=== PATIENT | male | born 1980 | race Caucasian/White ===

== ENCOUNTER 2021-04-10 13:59 | Emergency (ER) | payer SELFPAY ==
[2021-04-10 15:28] VITALS: BP 138/84; PULSE 64; RESP 18; TEMP 36.9; O2SAT 100; BMI 36.0
[2021-04-10 15:42] VITALS: BP 138/84; PULSE 64; RESP 18; TEMP 36.9
--- NOTE | 2021-04-10 16:22 | HMH.EDUTC ---
[facility] – [place] Disposition Clinical Impression: Exposure to COVID-19 virus Disposition: Home, Self-Care Condition on Discharge: Good Instructions: DI for COVID-19 (Suspected or Confirmed ), Preventing the Spread of Coronavirus Discharge Instructions Additional Instructions: Drink plenty of fluids. Take tylenol for pain or fever. Return if you begin to have difficulty breathing. Follow up with your regular doctor. GO TO THE ER FOR ANY WORSENING SYMPTOMS Quarantine until you know the results of your covid-19 test. If it is positive, the health department should call you and give you further instructions about your length of Quarantine and other things. Notify your school or workplace of your results and follow their instructions regarding return to work/school. Referrals: Rikki Peguero [Primary Care Provider] - Forms: Work/School Release Time of Disposition: 16:24 Medical Decision Making - Medical Records Medical records reviewed: No: I reviewed the patient's medical records. - Bennie Inquiry Pt receiving controlled substance: No Vital Signs: 04/10/21 15:28 04/10/21 15:42 Temperature 98.5 F 98.5 F Temperature Source Oral Pulse Rate 64 Pulse Rate [Left] 64 Respiratory Rate 18 18 Blood Pressure 138/84 Blood Pressure [Right Arm] 138/84 Blood Pressure Mean [Right Arm] 102 02 Sat by Pulse Oximetry 100 [facility] – [place] HPI - General Stated complaint: Covid test , exposure Time Seen by Provider: 04/10/21 16:23 Mode of Arrival: Ambulatory Source of Information: Patient Limitations: No Limitations Description of Symptoms (Recalled from Triage Doc. by RN): pt is asymptomatic. wants covid swab. HEENT Symptoms (Recalled from RN notes): No Resp Symptoms (Recalled from RN notes): No Skin Symptoms (Recalled from RN notes): No MS Symptoms (Recalled from RN notes): No Functional Status (Recalled from RN notes): na - History of Present Illness Provider Complaint: He was exposed to covid-19 around 3 days ago. - Worker's Comp Is this a Worker's Comp case?: No [facility] History - Hepatitis A Screen Drug use history?: No High risk sexual behaviors?: No History of sexually transmitted infection?: No Currently employed?: No Childcare worker?: No Do you have indoor plumbing?: Yes Do you have electricity?: Yes Attestation statement:: This patient has been screened for Hepatitis A risk factors. I have reviewed the patient's past medical history: Yes ROS Obtained: Yes All systems reviewed & no additional complaints - Constitutional Constitutional: Reports system reviewed and no additional complaints, except as docu - Eyes Eyes: Reports system reviewed and no additional complaints, except as docu - ENT Ears, Nose, Mouth, and Throat: Reports system reviewed and no additional complaints, except as docu - Cardiovascular Cardiovascular: Reports system reviewed and no additional complaints, except as docu - Respiratory Respiratory: Reports system reviewed and no additional complaints, except as docu Physical Exam - General General appearance: alert, in no apparent distress - Head Head exam: atraumatic, normocephalic, normal inspection - Eye Eye exam: Present: normal appearance, PERRL, EOMI - ENT ENT exam: Present: normal exam, normal oropharynx, mucous membranes moist, TM's normal bilaterally, normal external ear exam - Neck Neck exam: Present: normal inspection, full ROM, trachea midline. Absent: meningismus, lymphadenopathy - Chest Chest inspection: Present: normal inspection, symmetric chest wall rise. Absent: tenderness - Respiratory Respiratory exam: Present: normal lung sounds bilaterally. Absent: respiratory distress - Cardiovascular Cardiovascular exam: Present: regular rate, normal rhythm. Absent: JVD - Abdominal Exam Abdominal exam: Present: soft, normal bowel sounds. Absent: distention, tenderness, guarding - Extremities Exam Extremities exam: Present: normal inspectio
== END 2021-04-10 16:25 | disposition home or self-care (01) ==
PROVIDERS: Emergency Provider Nurse Practitioner Family; PCP Pediatrics
DX: U07.1 COVID-19 (principal)
CPT/HCPCS: 99202; G0463; U0003

== ENCOUNTER 2023-08-31 19:01 | Emergency (ER) | payer SELFPAY ==
[2023-08-31] VITALS (8 sets, daily range): BP systolic 104–150; BP diastolic 54–101; PULSE 91–131; RESP 16; TEMP 36.7; O2SAT 94–97; BMI 37.1
--- NOTE | 2023-08-31 19:01 | ECG_ITS ---
APPROVED REPORT Exam: Resting ECG HR:128 bpm ECG Measurements Heart Rate 128 AXES RI 178 P 64 QRSd 86 QRS 14 QT 297 T 52 QTc 373 Conclusion SINUS TACHYCARDIA ABNORMAL RHYTHM ECG UNCONFIRMED REPORT Electronically signed by : Dudley Olson MD 09/02/2023 16:43:18
--- NOTE | 2023-08-31 19:33 | XR_ITS ---
PROCEDURE INFORMATION: Exam: XR Chest Exam date and time: 08/31/2023 7:33 PM Age: 43 years old Clinical indication: Cough and dyspnea and fever; Additional info: Dyspnea, cough, fever TECHNIQUE: Imaging protocol: Radiologic exam of the chest. Views: 2 views. COMPARISON: No relevant prior studies available. FINDINGS: Lungs: peribronchial thickening right lung base. Findings compatible with bronchitis. Pleural spaces: Unremarkable. No pleural effusion. No pneumothorax. Heart/Mediastinum: Unremarkable. No cardiomegaly. Bones/joints: Unremarkable. IMPRESSION: Bronchitis right lower lobe
--- NOTE | 2023-08-31 19:36 | ED_ITS ---
Discharge Plan Disposition Patient Disposition: Home, Self-Care Prescriptions Prescriptions: New benzonatate 100 mg capsule 100 mg PO TID PRN (Reason: cough) 5 Days Qty: 20 0RF albuterol sulfate 90 mcg/actuation HFA aerosol inhaler 4 inh inhalation Q4H PRN (Reason: cough) Qty: 8.5 0RF Rx Instructions: 4 puffs every 4 hours for 48 hours then as needed for shortness of breath or wheezing following Referrals Follow up/Referrals: Rikki Peguero [Primary Care Provider] - See instructions Activity Restrictions/Add. Instructions Additional Instructions/Restrictions: You diagnosed with influenza today. Please continue to push oral fluids aggressively with Gatorade or Powerade. Your cough should be self-limiting over time but in the meantime we will treat supportively with symptomatic intervention. 2 prescriptions have been sent to your pharmacy including a cough medicine and an inhaler to help with some of the spasmodic symptoms you are having when having coughing fits. Additionally I would like for you to take T ylenol and ibuprofen 1000 mg of Tylenol and 80 mg of ibuprofen 3 times a day as needed for pain. Lastly please get [id number] chlorpheniramine 4 mg tablets to take every 6 hours as needed for cough and I would recommend that you take pseudoephedrine 120 mg extended release twice a day for the next 7 days this can be purchased [id number] but at the pharmacy desk. Clinical Impressions Clinical Impression: Chest wall pain, Influenza, Tachycardia, Bronchitis Discharge ED Provider: Ashtyn Jones General Adult HPI General Chief complaint: Chest Pain Stated complaint: chest pain Time Seen by Provider: 08/31/23 19:29 Mode of Arrival: Wheelchair Source of Information: Patient Limitations: No Limitations Description of Symptoms (Recalled from ER Triage Doc. by RN): Patient reports chest pain that radiates down his left arm since this morning. States he has had SOB, nausea and cough for approx 1 week. Reports speaking to his PCP related to the SOB, nausea and cough and they requested he get a xray. States he was unable to get the xray because he only has one car and couldn't take off work. History of Present Illness HPI narrative: Patient is a 43-year-old male presenting today with chest pain after having a cough over the last week. States he had a fever Tmax of 100.0 at home. States he is having significant chest pain associated with cough and any type of movement no exertional chest pain or dyspnea that he is aware of. Does feel little short of breath. No underlying heart or lung problems that he is aware of. Also has a significant headache he states at the moment. Related Data Previous Rx's Medication Instructions Recorded albuterol sulfate 90 mcg/actuation 4 inh inhalation Q4H PRN cough 08/31/23 aerosol inhaler #8.5 grams benzonatate 100 mg capsule 100 mg PO TID PRN cough 5 days #20 08/31/23 caps Allergies Allergy/AdvReac Type Severity Reaction Status Date / Time No Known Allergies Allergy Verified 08/31/23 19:08 [facility] Disclaimer: The information contained in this section may have been updated after the patient was seen, as this information can be updated by other users. Social History Smoking Status: Never smoker alcohol intake: never current occupational status: other Travel in the last 8 weeks: None ROS Obtained: Yes All systems reviewed & no additional complaints except as documented Physical Exam General General appearance: alert Respiratory Respiratory exam: Present other (Mildly tachypneic no coarse breath sounds oxygen saturation is 95% on room air) Cardiovascular Cardiovascular exam: Present tachycardia (Heart rate 135) Neurological Exam Neurological exam: Present alert Medical Decision Making Bennie Inquiry Pt receiving controlled substance: No Vital Signs: 08/31/23 19:02 08/31/23 19:30 08/31/23 20:01 Temperature 98.1 F Temperature Source Oral Pulse Rate 131 H 131 H Pulse Rate [Radial] 131 H Respiratory Rate 16 Blood Pressure 150/101 H 140/86 Blood Pressure [Right Arm] 143/94 H Blood Pressure Mean 117 104 Blood Pressure Mean [Right Arm] 110 02 Sat by Pulse Oximetry 95 97 97 Oxygen Delivery Method Room Air 08/31/23 21:01 08/31/23 21:31 08/31/23 22:00 Temperature Temperature Source Pulse Rate 104 H 91 H Pulse Rate [Radial] Respiratory Rate Blood Pressure 111/54 L 136/59 L 114/62 Blood Pressure [Right Arm] Blood Pressure Mean 73 71 80 Blood Pressure Mean [Right Arm] 02 Sat by Pulse Oximetry 94 L 96 94 L Oxygen Delivery Method 08/31/23 22:30 Temperature Temperature Source Pulse Rate 100 H Pulse Rate [Radial] Respiratory Rate Blood Pressure 104/68 L Blood Pressure [Right Arm] Blood Pressure Mean 87 Blood Pressure Mean [Right Arm] 02 Sat by Pulse Oximetry 95 Oxygen Delivery Method Lab Data Lab results reviewed: Yes I reviewed the patient's lab results. Lab Results 08/31/23 19:03: WBC 9.3, RBC 5.59, Hgb 16.8, Hct 48.7, MCV 87.1, MCH 30.1, MCHC 34.6, RDW 13.6, Plt Count 225, MPV 7.4, Neut % (Auto) 82.5 H, Lymph % (Auto) 8.0 L, [place] % (Auto) 6.1, Eos % (Auto) 3.0, Baso % (Auto) 0.5, Neut # (Auto) 7.7, Lymph # (Auto) 0.7, [place] # (Auto) 0.6, Eos # (Auto) 0.3, Baso # (Auto) 0.1, Sodium 136, Potassium 4.0, Chloride 102, Carbon Dioxide 24, Anion Gap 14.0, BUN 14, Creatinine 1.00, Estimated Creat Clear 138, Estimated GFR 81, Est GFR ( Amer) 98, Glucose 106 H, Calcium 9.3, Total Bilirubin 0.9, AST 44, ALT 46, Alkaline Phosphatase 57, Troponin I < 0.01, Total Protein 8.2, Albumin 4.6, Globulin 3.6 H, Albumin/Globulin Ratio 1.3, SARS-CoV-2 (PCR) Not detected, Influenza A Untype (PCR) Detected A, Influenza Type B (PCR) Not detected 08/31/23 19:03 08/31/23 19:03 Orders (Tests/Meds): ED MEDICATIONS Discontinued Medications Generic Name Dose Route Start Last Admin Trade Name Freq PRN Reason Stop Dose Admin Acetaminophen 1,000 mg 08/31/23 19:34 08/31/23 20:16 Acetaminophen 500mg Tab PO 08/31/23 19:35 1,000 mg ONCE ONE Administration Lactated Ringer's 1,000 mls @ 999 mls/hr 08/31/23 19:45 08/31/23 20:15 Lactated Ringer's 1000 Ml Bag IV 08/31/23 20:45 999 mls/hr .Q1H1M JUAN Administration Lactated Ringer's 1,000 mls @ 999 mls/hr 08/31/23 21:15 08/31/23 22:26 Lactated Ringer's 1000 Ml Bag IV 08/31/23 22:15 999 mls/hr .Q1H1M JUAN Administration Ketorolac Tromethamine 15 mg 08/31/23 19:34 08/31/23 20:16 Ketorolac 30mg/Ml Vial IV 08/31/23 19:35 15 mg ONCE ONE Administration ORDERS Category Date Time Status XR chest 2V Stat Exams 08/31/23 19:33 Completed CBC w/Auto Diff [Complete Blood Count Auto Diff] Stat Lab 08/31/23 19:03 Completed CMP [Comprehensive Metabolic Panel] Stat Lab 08/31/23 19:03 Completed Lactic Acid Stat Lab 08/31/23 19:34 Ordered Rapid PCR Covid and Flu A/B Stat Lab 08/31/23 19:03 Completed Trop I [Troponin I] Stat Lab 08/31/23 19:03 Completed Troponin I Q3H Lab 08/31/23 22:45 Ordered Troponin I Q3H Lab 09/01/23 01:45 Ordered Blood Culture Stat Micro 08/31/23 20:02 Received Medical Decision Narrative: Patient is a 43-year-old male mildly tachypneic tachycardic to 135 I rechecked his temperature myself and it was 100.8 therefore he meets multiple SIRS criteria and concern that he is septic. This could be viral or bacterial in nature. He has mildly depressed oxygen saturations making concerned about focal consolidation. Will get a two-view chest x-ray blood cultures lactic acid initiate IV fluids he has been given Toradol for his chest pain which is most likely musculoskeletal in nature as well as Toradol which also should help with his headache. Will reassess after his initial workup is complete. EKG performed on first interpreted shows a ventricular rate of 128 sinus tachycardia no acute ischemic changes noted normal axis no conduction abnormalities noted nondiagnostic. Reassessment 903 patient persistently tachycardic however heart rate is now 117 on my last assessment. Labs have returned and are largely unremarkable aside from the fact that he is flu positive. He is greater than 48 hours out if he is outpatient we will not treat with antiviral medication. Chest x-ray performed which I personally interpreted shows an peribronchial thickening but no definitive pneumonia. At this point after giving him antipyretics and IV fluids with his persistent tachycardia I placed in ED observation order at 9 PM additional liter of fluids has been administered I will reassess if we can get his heart rate down he should be stable to be discharged. Reassessment 10:47 PM after nearly 2 hours of observation additional IV fluids patient's heart rate is back down in the 90s he is feeling significantly better. Symptomatic medicines were prescribed to his pharmacy no evidence of sepsis serial perfusion assessments are normal. No antibiotics indicated at the moment. No antiviral medications either. He has been given an antihistamine decongestant albuterol inhaler and benzonatate return precautions emphasized. Critical Care Critical Care Time Critical Care Time: No
[2023-08-31 19:56] LABS: Coronavirus 19, PCR Not Detected (NotDetected); Influenza B, PCR Not Detected (NotDetected)
[2023-08-31 20:01] LABS: Chloride 102 mmol/L (98-107); Sodium 136 mmol/L (136-145)
[2023-08-31 20:04] LABS: Alanine Aminotransferase 46 U/L (12-78); Albumin Level 4.6 g/dl (3.5-5.0); Albumin/Globulin Ratio 1.3 (1.1-1.8); Alkaline Phosphatase 57 U/L (38-126); Aspartate Amino Transferase 44 U/L (17-59); Bilirubin,Total 0.9 mg/dl (0.2-1.3); Blood Urea Nitrogen 14 mg/dl (9-20); Carbon Dioxide 24 mmol/L (22.0-30.0); Creatinine Clearance Estimated 138 mL/min (50-200); Estimated Glomerular Filt Rate 81 ml/min (>60); GFR (African American) 98 ML/MIN (>60); Globulin 3.6 g/dL (1.3-3.2); Total Protein,Serum 8.2 g/dl (6.3-8.2)
[2023-08-31 20:05] LABS: Calcium 9.3 mg/dl (8.4-10.2); Glucose 106 mg/dl (74-100)
[2023-08-31 20:09] LABS: Basophils # 0.1 K/mm3 (0-0.2); Basophils % 0.5 % (0.1-2.0); Eosinophils # 0.3 K/mm3 (0.0-0.4); Hematocrit 48.7 % (42.0-52.0); Hemoglobin 16.8 g/dL (14.1-18.0); Lymphocytes # 0.7 K/mm3 (0.7-4.5); Mean Corpuscular HGB Conc 34.6 g/dL (31.8-35.4); Mean Corpuscular Hemoglobin 30.1 pg (27.0-31.2); Mean Corpuscular Volume 87.1 fl (80-94); Mean Platelet Volume 7.4 fl (7.4-10.4); Monocytes # 0.6 K/mm3 (0.1-1.0); Monocytes % 6.1 % (1.7-9.3); Neutrophils # 7.7 K/mm3 (1.8-7.8); Neutrophils % 82.5 % (37.0-80.0); Platelet Count 225 K/mm3 (142-424); Red Blood Count 5.59 M/mm3 (4.60-6.20); Red Cell Distribution Width 13.6 % (11.5-17.5); White Blood Count 9.3 K/mm3 (4.8-10.8)
[2023-08-31] MEDS: LACTATED RINGERS 1000ML 1,000 ML 999 ML IV ×2 (20:15→22:26)
[2023-08-31] MEDS: KETOROLAC 30MG/ML VIAL 15 MG IV (20:16)
[2023-08-31] MEDS: ACETAMINOPHEN 500MG TAB 1000 MG PO (20:16)
[2023-08-31 20:25] LABS: Influenza A, PCR Detected (NotDetected)
[2023-08-31 20:28] LABS: Troponin I < 0.01 ng/ml (0.00-0.034)
== END 2023-08-31 22:53 | disposition home or self-care (01) ==
PROVIDERS: Emergency Provider Student in an Organized Health Care Education/Training Program; PCP Pediatrics
DX: R07.89 Other chest pain (principal); M79.602 Pain in left arm; J40 Bronchitis, not specified as acute or chronic; R06.02 Shortness of breath; R11.0 Nausea; R00.0 Tachycardia, unspecified
CPT/HCPCS: 71046; 80053; 84484; 85025; 87040; 87636; 93005; 96361; 96374; 99285

== ENCOUNTER 2024-08-19 22:19 | Emergency (ER) | payer SELFPAY ==
[2024-08-19 23:35] VITALS: BP 166/107; PULSE 103; RESP 16; TEMP 37.1; O2SAT 96; BMI 36.0
--- NOTE | 2024-08-19 23:37 | XR_ITS ---
PROCEDURE INFORMATION: Exam: XR Chest Exam date and time: 08/19/2024 11:32 PM Age: 44 years old Clinical indication: Cough; Additional info: Cough rib pain TECHNIQUE: Imaging protocol: Radiologic exam of the chest. Views: 2 views. COMPARISON: CR XR CHEST 2V 08/31/2023 7:33 PM FINDINGS: Lungs: Unremarkable. No consolidation. There are several small calcified granulomas at the right lung base. Pleural spaces: Unremarkable. No pleural effusion. No pneumothorax. Heart/Mediastinum: Unremarkable. No cardiomegaly. Vasculature: Unremarkable. Bones/joints: [id number] degenerative changes of the spine. IMPRESSION: No acute findings.
--- NOTE | 2024-08-19 23:54 | ECG_ITS ---
APPROVED REPORT Exam: Resting ECG HR:91 bpm ECG Measurements Heart Rate 91 AXES LA 167 P 63 QRSd 82 QRS 56 QT 353 T 62 QTc 402 Conclusion SINUS RHYTHM NORMAL ECG Electronically signed by : CYNDI ORDONEZ, 08/20/2024 07:11:44
[2024-08-19 23:59] LABS: Basophils # 0.1 K/mm3 (0-0.2); Basophils % 1.2 % (0.1-2.0); Eosinophils # 0.4 K/mm3 (0.0-0.4); Hemoglobin 15.5 g/dL (14.1-18.0); Lymphocytes # 2.5 K/mm3 (0.7-4.5); Lymphocytes % 33.4 % (10-50); Mean Corpuscular HGB Conc 35.2 g/dL (31.8-35.4); Mean Corpuscular Volume 85.1 fl (80-94); Mean Platelet Volume 8.6 fl (7.4-10.4); Monocytes # 0.7 K/mm3 (0.1-1.0); Monocytes % 9.9 % (1.7-9.3); Neutrophils # 3.6 K/mm3 (1.8-7.8); Neutrophils % 49.1 % (37.0-80.0); Platelet Count 245 K/mm3 (142-424); Red Blood Count 5.17 M/mm3 (4.60-6.20); Red Cell Distribution Width 12.7 % (11.5-17.5); White Blood Count 7.4 K/mm3 (4.8-10.8)
--- NOTE | 2024-08-20 00:04 | [facility].EDGENADL ---
Discharge Plan Disposition Patient Disposition: Home, Self-Care Condition: Good Prescriptions Prescriptions: New methocarbamol 500 mg tablet 500 mg PO TID PRN (Reason: Muscle Spasm) Qty: 20 0RF lidocaine 5 % adhesive patch,medicated See Rx Instructions .ROUTE .COMPLEX Qty: 15 0RF Rx Instructions: Apply 1 patch to most painful area and leave on for 12 hours. Remove and leave off for 12 hours before using a new patch. guaifenesin 600 mg tablet extended release 12hr 600 mg PO BID PRN (Reason: cough) Qty: 10 0RF No Action benzonatate 100 mg capsule 100 mg PO TID PRN (Reason: cough) 5 Days Qty: 20 0RF albuterol sulfate 90 mcg/actuation HFA aerosol inhaler 4 inh inhalation Q4H PRN (Reason: cough) Qty: 8.5 0RF Rx Instructions: 4 puffs every 4 hours for 48 hours then as needed for shortness of breath or wheezing following Referrals Follow up/Referrals: Rikki Peguero [Primary Care Provider] - See instructions Activity Restrictions/Add. Instructions Additional Instructions/Restrictions: You were evaluated in the ER and are appropriate for discharge at this time. Take Tylenol, ibuprofen if needed for pain, do not exceed the recommended dose on the bottle. Drink water and eat a small snack each time you take these medications to avoid side effects. Take the prescribed methocarbamol if needed for muscle relaxer, this medication may make you sleepy, do not drive or operate machinery after taking it. Remove the lidocaine patch that you have on after 12 hours. Leave off for 12 hours before using a new patch. Take the prescribed guaifenesin if needed for cough. Make an appointment with your primary care doctor for reevaluation in 2 to 3 days, return to the ER with new, worsening, or otherwise concerning symptoms. Clinical Impressions Clinical Impression: Right-sided chest wall pain Print Language Print Language: Occitan Discharge ED Provider: Liza Teresa Adult HPI General Chief complaint: PAIN Stated complaint: SOA, cough severe rib pain Time Seen by Provider: 08/19/24 23:36 Mode of Arrival: Ambulatory Source of Information: Patient Limitations: No Limitations Description of Symptoms (Recalled from ER Triage Doc. by RN): c/o pain to right ribs, cough with white sputum since this am. Denies any fever, vomiting or diarrhea History of Present Illness HPI narrative: 44-year-old male presents to the ER with complaints of cough productive of white sputum and right rib pain. Patient reports about a week ago he had congestion and mild cough. He states he has recovered from most of those symptoms except the cough has been persistent and earlier this morning he coughed and felt sudden pain in his right side. He states it hurts to cough, laugh, or twist due to pain in the right side. He demonstrates to the right lower lateral ribs and 1 demonstrating where his pain is maximal. He denies fevers, nausea, vomiting, diarrhea, abdominal pain, dizziness, headache, numbness, tingling, or weakness. He has not had hemoptysis, no history of blood clot, no recent long distance travel, no swelling in the feet or legs, no known cardiac history. Patient denies taking medications for his pain prior to arrival. Related Data Previous Rx's ?Medication ?Instructions ?Recorded albuterol sulfate 90 mcg/actuation 4 inh inhalation Q4H PRN cough 08/31/23 aerosol inhaler #8.5 grams benzonatate 100 mg capsule 100 mg PO TID PRN cough 5 days #20 08/31/23 caps guaifenesin 600 mg tablet, 600 mg PO BID PRN cough #10 tabs 08/20/24 extended release 12 hr lidocaine 5 % topical patch See Rx Instructions topical 08/20/24 .COMPLEX #15 ea methocarbamol 500 mg tablet 500 mg PO TID PRN Muscle Spasm #20 08/20/24 tabs Allergies Allergy/AdvReac Type Severity Reaction Status Date / Time No Known Allergies Allergy Verified 08/31/23 19:08 [facility] Disclaimer: The information contained in this section may have been updated after the patient was seen, as this information can be updated by other users. Social History (Updated 08/31/23 @ 22:47 by Ashtyn Jones MD) Smoking Status: Never smoker alcohol intake: never current occupational status: other Travel in the last 8 weeks: None ROS Obtained: Yes Systems reviewed as appropriate & no additional complaints except as documented Per HPI Physical Exam General General appearance: alert and in no apparent distress Head Head exam: atraumatic and normocephalic Eye Eye exam: Present PERRL and EOMI ENT ENT exam: Present mucous membranes moist Neck Neck exam: Present normal inspection and full ROM Chest Chest inspection: Present symmetric chest wall rise and tenderness (Tenderness to palpation of the right lateral lower ribs without findings of injury, no bruising, no overlying skin changes no crepitus, no deformity,) Respiratory Respiratory exam: Present normal lung sounds bilaterally; Absent respiratory distress, wheezes or stridor Cardiovascular Cardiovascular exam: Present regular rate and normal rhythm Abdominal Exam Abdominal exam: Present soft; Absent distention or tenderness Extremities Exam Extremities exam: Present full ROM; Absent edema or calf tenderness Neurological Exam Neurological exam: Present alert and oriented X3; Absent motor sensory deficit Psychiatric Psychiatric exam: Present normal affect and normal mood Skin Skin exam: Present warm and dry Medical Decision Making Medical Records Medical records reviewed: Yes I reviewed the patient's medical records. Screening: Per USPSTF and CDC recommendations, given the prevalence of disease in our region, it is our hospital?s policy to screen for HIV and viral Hepatitis for all patients aged 18 and over and those with ongoing risk factors. MR Moon: Patient was evaluated in our ER in August 2023 and found to have bronchitis. He was prescribed benzonatate and albuterol inhaler at that time. Bennie Inquiry Pt receiving controlled substance: No Vital Signs: 08/19/24 23:35 08/20/24 02:01 Temperature 98.7 F 98.4 F Temperature Source Oral Oral Pulse Rate 75 Pulse Rate [Right Brachial] 103 H Respiratory Rate 16 20 Blood Pressure 140/76 Blood Pressure [Right Arm] 166/107 H Blood Pressure Mean [Right Arm] 126 Blood Pressure Source [Right Arm] Automatic Cuff Blood Pressure Position [Right Arm] Supine 02 Sat by Pulse Oximetry 96 Oxygen Delivery Method Room Air Room Air Lab Data Lab Results 08/19/24 23:45: WBC 7.4, RBC 5.17, Hgb 15.5, Hct 44.0, MCV 85.1, MCH 30.0, MCHC 35.2, RDW 12.7, Plt Count 245, MPV 8.6, Neut % (Auto) 49.1, Lymph % (Auto) 33.4, [place] % (Auto) 9.9 H, Eos % (Auto) 6.0, Baso % (Auto) 1.2, Neut # (Auto) 3.6, Lymph # (Auto) 2.5, [place] # (Auto) 0.7, Eos # (Auto) 0.4, Baso # (Auto) 0.1, D-Dimer 0.57 H, Sodium 137, Potassium 4.0, Chloride 107, Carbon Dioxide 24, Anion Gap 10.0, BUN 17, Creatinine 0.90, Estimated Creat Clear 151, Estimated GFR 91, Est GFR ( Amer) 110, Glucose 124 H, Calcium 9.5, Total Bilirubin 0.4, AST 38, ALT 40, Alkaline Phosphatase 55, Troponin I < 0.01, Total Protein 7.5, Albumin 4.3, Globulin 3.2, Albumin/Globulin Ratio 1.3 08/19/24 23:45 08/19/24 23:45 Orders (Tests/Meds): ED MEDICATIONS Discontinued Medications Generic Name Dose Route Start Last Admin Trade Name Freq PRN Reason Stop Dose Admin Acetaminophen 1,000 mg 08/19/24 23:41 08/20/24 00:08 Acetaminophen 500mg Tab PO 08/19/24 23:42 1,000 mg ONCE ONE Administration Ketorolac Tromethamine 30 mg 08/19/24 23:41 08/20/24 00:08 Ketorolac 30mg/Ml Vial IV 08/19/24 23:42 30 mg ONCE ONE Administration Lidocaine 1 each 08/19/24 23:41 08/20/24 00:08 Lidocaine 5% Transdermal Patch TP 08/19/24 23:42 1 each ONCE ONE Administration ORDERS Category Date Time Status CXR 2 view (NOT portable) [XR chest 2V] Stat Exams 08/19/24 23:37 Completed CBC w/Auto Diff [Complete Blood Count Auto Diff] Stat Lab 08/19/24 23:45 Completed CMP [Comprehensive Metabolic Panel] Stat Lab 08/19/24 23:45 Completed D-Dimer Stat Lab 08/19/24 23:45 Completed Trop I [Troponin I] Stat Lab 08/19/24 23:45 Completed Medical Decision Narrative: In summary, this 44-year-old male with comorbidities described in the HPI presents to the emergency department today with cough, right rib pain. On initial evaluation patient is slightly tachycardic but otherwise hemodynamically stable, afebrile, patient has tenderness to palpation of the right lateral lower ribs without findings of trauma, he denies any recent traumatic injury, lungs clear bilaterally, no peripheral swelling or redness. Differential diagnosis includes but is not limited to ACS, PE, pneumonia, muscle spasm, pneumonia, rib fracture. Based on these concerns, I ordered serum labs, cardiac workup, chest x-ray. ECG personally interpreted demonstrates normal sinus rhythm, rate 91, normal axis, normal PA and QTc, no STEMI. Patient received Toradol, Tylenol, lidocaine patch for treatment. Labs personally reviewed demonstrate No leukocytosis, no anemia, platelets normal, CMP nonactionable, troponin undetectably low which is reassuring in the setting of patient having symptoms since this morning, I do not believe serial troponins are indicated. D-dimer negative. XR personally interpreted demonstrates no acute intrathoracic abnormality, no obvious rib fracture, see radiology read for final interpretation.. On reassessment after patient received medications, he is feeling improved. I believe he is appropriate for discharge at this time. I prescribed methocarbamol, lidocaine patches, guaifenesin for outpatient management. Patient was given instructions on symptomatic management, follow up instructions, and return precautions for the emergency department. Patient indicated understanding and was discharged in stable condition. Critical Care Critical Care Time Critical Care Time: No
[2024-08-20 00:05] LABS: Albumin Level 4.3 g/dl (3.5-5.0); Chloride 107 mmol/L (98-107); Sodium 137 mmol/L (136-145)
[2024-08-20 00:08] LABS: Alanine Aminotransferase 40 U/L (12-78); Albumin/Globulin Ratio 1.3 (1.1-1.8); Alkaline Phosphatase 55 U/L (38-126); Aspartate Amino Transferase 38 U/L (17-59); Bilirubin,Total 0.4 mg/dl (0.2-1.3); Blood Urea Nitrogen 17 mg/dl (9-20); Calcium 9.5 mg/dl (8.4-10.2); Carbon Dioxide 24 mmol/L (22.0-30.0); Creatinine Clearance Estimated 151 mL/min (50-200); Estimated Glomerular Filt Rate 91 ml/min (>60); GFR (African American) 110 ML/MIN (>60); Globulin 3.2 g/dL (1.3-3.2); Glucose 124 mg/dl (74-100); Total Protein,Serum 7.5 g/dl (6.3-8.2)
[2024-08-20] MEDS: KETOROLAC 30MG/ML VIAL 30 MG IV (00:08)
[2024-08-20] MEDS: ACETAMINOPHEN 500MG TAB 1000 MG PO (00:08)
[2024-08-20] MEDS: LIDOCAINE 5% TRANSDERMAL PATCH 1 EACH TP (00:08)
[2024-08-20 00:31] LABS: Troponin I < 0.01 ng/ml (0.00-0.034)
[2024-08-20 01:20] LABS: D-Dimer 0.57 ug/mL (0.0-0.5)
[2024-08-20 02:01] VITALS: BP 140/76; PULSE 75; RESP 20; TEMP 36.9; O2SAT 96
== END 2024-08-20 02:10 | disposition home or self-care (01) ==
PROVIDERS: Emergency Provider Emergency Medicine; PCP Pediatrics
DX: R07.89 Other chest pain (principal); R05.8 Other specified cough; R07.82 Intercostal pain
CPT/HCPCS: 71046; 80053; 84484; 85025; 85378; 93005; 96374; 99284; J1885